=== PATIENT | male | born 1955 | race Caucasian/White ===

== ENCOUNTER 2017-06-12 10:34 | Observation (INO) | payer MEDICARE, OTHER ==
[~2017-06-12] VITALS: Ht 188 cm; Wt 111.0 kg
[~2017-06-12 10:34] MED LIST: ACETAMIN-HYDROcod 325-5 MG PO; ALBU8I INH; BACT800T5 PO; DILA100C PO; PHEN100 PO
[2017-06-12 11:22] VITALS: BP 147/73; PULSE 97; RESP 22; TEMP 98.2; O2SAT 94
[2017-06-12] MEDS ORDERED: TETANUS/DIPHTHERIA TOXOID ADULT 0.5 ML VIAL IM ONE (11:30)
[2017-06-12] MEDS ORDERED: LIDOCAINE HCL 1% 50 ML VIAL INFIL ONE (11:30)
--- NOTE | 2017-06-12 11:43 | PD ---
HPI Chief Complaint: Seizure Time Seen by Provider: 11:36 Travel History International Travel<30 days: No Contact w/Intl Traveler<30days: No Traveled to known affect area: No History of Present Illness HPI 61- year old with a PMHx of seizures, DVTs, and TB brought to the ED by [facility] complaining of a seizure 30 minutes prior to coming. The patient is here with his , who reports that the seizure was this morning and lasted about 5 minutes. Full tonic with LOC. The patient reports that he takes Dilantin for his seizures, but he missed a dose last night. The patient hit his head while seizing and has a laceration to his right ear. The patient is complaining of pain to his right ear due to the laceration which he rates as a 2/10, and a mild headache due to the seizure. The patient reports that his neurologist is Dr. Hernandez. The patient is a former smoker, and denies any alcohol or drug use. He reports that it has been over 5 years since his last tetanus shot. Denies any other injuries. No pain anywhere else. PFSH Past Medical History Arthritis: Yes (NECK) Cancer: Yes (COLON (CURRENTLY)) Cardiovascular Problems: Yes (LBBB) Diabetes: No Diminished Hearing: No Deep Vein Thrombosis: Yes (2008 TIMES 2) Endocrine: No Genitourinary: No Hepatitis: No Hiatal Hernia: No Immune Disorder: No Musculoskeletal: Yes (ARTHRITIS) Neurologic: Yes (SEIZURES) Psychiatric: No Reproductive: No Respiratory: Yes (COPD, HX TB) Seizures: Yes Thyroid Disease: No PNEUMOCCOCAL Vaccine (Year): 2 Past Surgical History AICD: No Ear Surgery: No Eye Surgery: Yes (METAL FRAGMENTS REMOVED FROM EYES) Joint Replacement: Yes (LEFT HIP) Pacemaker: No Other Surgery: Yes (TRAUMA WITH SURGICAL REPAIR OF ANTERIOR OF NECK/THROAT) Social History Alcohol Use: Yes (OCC. ) Tobacco Use: Yes (LESS THAN 1 PPD) Substance Use: No Allergies-Medications (Allergen,Severity, Reaction): Coded Allergies: morphine (Unverified Adverse Reaction, Mild, foot burning sensation, ) 05/20/16 DENIES ALLERGY Reported Meds & Prescriptions Reported Meds & Active Scripts Active [ACETAMIN-HYDROcod 325-5 MG] 1 TAB Tab 2 Tab PO Q6H PRN Reported Xarelto (Rivaroxaban) 20 Mg Tab 20 Mg PO DAILY Dilantin (Phenytoin Extended) 100 Mg Cap 200 Mg PO DAILY@1600 Dilantin (Phenytoin Extended) 100 Mg Cap 300 Mg PO DAILY Review of Systems General / Constitutional: No: Fever, Chills, Weight Gain, Weight Loss, Other Eyes: No: Diploplia, Blurred Vision, Photophobia, Drainage, Redness, Foreign Body Sensation, Pain, Tearing, Blind Spots, Visual changes, Blindness, Other HENT: Positive: Headaches, No: Vertigo, Lightheadedness, Sore Throat, Rhinitis , Rhinorrhea, Congestion, Nosebleed, Neck Stiffness, Neck Pain, Masses, Gingival Bleeding, Dental Difficulties, Ear Discharge, Earache, Other Cardiovascular: No: Chest Pain or Discomfort, Palpitations, Irregular Rhythm, Tachycardia, Diaphoresis, Syncope, Dyspnea on exertion, Varicosities, Edema, Cyanosis, Varicosities, Phlebitis, Claudication, Other Respiratory: No: Cough, Shortness of Breath, Wheezing, Sneezing, Orthopnea, Hemoptysis, Stridor, Night Sweats, Pleuritic Pain, Other Gastrointestinal: No: Nausea, Vomiting, Diarrhea, Abdominal Pain, Hematemesis, Hematochezia, Constipation, Changes in Bowel Habits, Indigestion, Dysphagia, Loss of Appetite, Other Genitourinary: No: Urgency, Frequency, Dysuria, Nocturia, Hematuria, Decreased Urinary Output, Oliguria, Hesitancy, Dribbling, Incontinence, Pelvic Pain, Flank Pain, Dyspareunia, Discharge, Dysmenorrhea, Menorrhagia, Metorrhagia, Vaginal Bleeding, Other Musculoskeletal: No: Myalgias, Arthralgias, Limited ROM, Weakness, Cramping, Edema, Pain, Atrophy, Other Skin: Positive Other (Laceration to right ear ), No Rash, No Itching, No Dryness, No Lumps, No Hives, No Change in Pigmentation, No Change in nails, No Alopecia, No Lesions, No Breast Lumps, No Breast Tenderness, No Breast Swelling Neurologic: Positive: Headache, Seizures, No: Weakness, Dizziness, Syncope, Focal Abnormalities, Coordination Problem, Tremor, Ataxia, Change in Mentation, Slurred Speech, Paresthesia, Incontinence, Sensory Disturbance, Other Psychiatric: No: Anxiety, Depression, Suicidal Ideations, Disorder of Thought, Mood Disorder, Substance Abuse, Homicidal Ideation, Other Endocrine: No: Heat Intolerance, Cold Intolerance, Polyuria, Polydipsia, Other Hematologic/Lymphatic: No: Easy Bruising, Lymph Node Enlargement, Other Physical Exam Narrative GENERAL: SKIN: Warm and dry. HEAD: Atraumatic. Normocephalic. EYES: Pupils equal and round. No scleral icterus. No injection or drainage. ENT: No nasal bleeding or discharge. Mucous membranes pink and moist. Tongue is midline, no uvula deviation. NECK: Trachea midline. No JVD. CARDIOVASCULAR: Regular rate and rhythm. No murmurs, S3, S4. RESPIRATORY: No accessory muscle use. Clear to auscultation. Breath sounds equal bilaterally. No wheezing, rales, or rhonchi. GASTROINTESTINAL: Abdomen soft, non-tender, nondistended. Hepatic and splenic margins not palpable. MUSCULOSKELETAL: Laceration behind right ear. Extremities without clubbing, cyanosis, or edema. No obvious deformities. Full ROM of the upper and lower extremities bilaterally. 2+ pulses bilaterally. NEUROLOGICAL: Awake and alert. No obvious cranial nerve deficits. Motor grossly within normal limits. Five out of 5 muscle strength in the arms and legs. Normal speech. PSYCHIATRIC: Appropriate mood and affect; insight and judgment normal. Data Data Last Documented VS Vital Signs Date Time Temp Pulse Resp B/P Pulse Ox O2 Delivery O2 Flow Rate FiO2 06/12/17 15:45 88 16 103/53 94 06/12/17 12:13 98.2 Room Air Orders Electrocardiogram (06/12/17 11:27) Complete Blood Count With Diff (06/12/17 11:27) Basic Metabolic Panel (Bmp) (06/12/17 11:27) Magnesium (Mg) (06/12/17 11:27) Phenytoin (Dilantin) (06/12/17 11:27) Iv Access Insert/Monitor (06/12/17 11:27) Ecg Monitoring (06/12/17 11:27) Oximetry (06/12/17 11:27) Ct Brain W/O Iv Contrast(Rout) (06/12/17 11:27) Wound Care (06/12/17 11:27) Tetanus/Diphtheria Tox Adult (Tetanus/Di (06/12/17 11:30) Lidocaine 1% Inj (50 Ml) (Xylocaine 1% I (06/12/17 11:30) Alcohol (Ethanol) (06/12/17 11:27) Coag Profile (06/12/17 11:27) Vascular Access Team Consult/P PRN (06/12/17 11:49) Vascular Poc Ultrasound (06/12/17 ) Ct Facial Bones W/O Iv Cont (06/12/17 ) Acetamin-Hydrocod 325-5 Mg ([place] 5-325 (06/12/17 14:30) Lorazepam Inj (Ativan Inj) (06/12/17 14:29) Phenytoin Inj (Dilantin Inj) (06/12/17 14:45) Lorazepam Inj (Ativan Inj) (06/12/17 14:42) Place In Observation (06/12/17 ) Vital Signs (Adult) RICH.Q4H (06/12/17 16:01) Activity Oob With Assistance (06/12/17 16:01) Cmm Technician / Telemetry RICH.Q8H (06/12/17 16:01) Diet Heart Healthy (06/12/17 Dinner) Sodium Chlor 0.45% 1000 Ml Inj (1/2 Ns 1 (06/12/17 16:01) ^ Fall Precautions (06/12/17 16:03) ^ Seizure Precautions (06/12/17 16:03) Admit Order (Ed Use Only) (06/12/17 16:01) Labs Laboratory Tests Test 06/12/17 11:50 White Blood Count 9.2 TH/MM3 Red Blood Count 4.30 MIL/MM3 Hemoglobin 14.7 GM/DL Hematocrit 43.5 % Mean Corpuscular Volume 101.2 FL Mean Corpuscular Hemoglobin 34.1 PG Mean Corpuscular Hemoglobin 33.7 % Concent Red Cell Distribution Width 13.2 % Platelet Count 225 TH/MM3 Mean Platelet Volume 7.8 FL Neutrophils (%) (Auto) 90.2 % Lymphocytes (%) (Auto) 5.5 % Monocytes (%) (Auto) 4.0 % Eosinophils (%) (Auto) 0.1 % Basophils (%) (Auto) 0.2 % Neutrophils # (Auto) 8.3 TH/MM3 Lymphocytes # (Auto) 0.5 TH/MM3 Monocytes # (Auto) 0.4 TH/MM3 Eosinophils # (Auto) 0.0 TH/MM3 Basophils # (Auto) 0.0 TH/MM3 CBC Comment DIFF FINAL Differential Comment Prothrombin Time 11.4 SEC Prothromb Time International 1.0 RATIO Ratio Activated Partial 24.1 SEC Thromboplast Time Sodium Level 138 MEQ/L Potassium Level 4.7 MEQ/L Chloride Level 109 MEQ/L Carbon Dioxide Level 22.8 MEQ/L Anion Gap 6 MEQ/L Blood Urea Nitrogen 13 MG/DL Creatinine 0.91 MG/DL Estimat Glomerular Filtration 85 ML/MIN Rate Random Glucose 129 MG/DL Calcium Level 8.4 MG/DL Magnesium Level 2.2 MG/DL Phenytoin (Dilantin) Level 11.0 MCG/ML Ethyl Alcohol Level LESS THAN 3 MG/DL MDM Medical Decision Making Medical Screen Exam Complete: Yes Emergency Medical Condition: Yes Medical Record Reviewed: Yes Interpretation(s) CBC & BMP Diagram 06/12/17 11:50 coags WNL tox shows phenytoin of WNL Last Impressions Head CT 06/12/17 1127 Signed Impressions: Service Date/Time: May 13:55 - CONCLUSION: No acute disease. Miguel An MD Maxillofacial CT 06/12/17 0000 Signed Impressions: Service Date/Time: May 13:57 - CONCLUSION: Negative trauma facial bone CT Clarence Blandon MD Differential Diagnosis Seizures vs laceration vs head injury vs breakthrough seizure Narrative Course 61-year-old male that presents to the ED for evaluation of seizure. Patient has a history of seizures and had a breakthrough seizure today. Patient had blood work done last week and she was seen by his neurologist last week and was told that his levels were fine. He has not had a seizure in quite sometime. Labs and imaging were ordered. CT of the head was ordered as patient does take Xarelto. Patient did suffer a laceration which will require repair. After splint proceeded to the patient and she agreed to it laceration was repaired as stated in procedure note. Labs and imaging showed no sign of acute injury. Case discussed with the patient's neurologist over the phone Dr Bailey who recommended that we up the phenytoin and can be discharged, however at the same time I was talking with him I get informed he had another seizure. This was discussed with him who agrees possible obs to monitor him would be recommended. This was discussed with family and patient who agree with plan. Case discussed with [facility] who agrees to admission. Procedures Procedure Narrative LACERATION LOCATION: right posterior ear LENGTH: 3 cm NUMBER OF STITCHES/TERENCE: 8 sutures REPAIR: The area of the laceration was prepped with Betadine and sterilely draped. The laceration was infiltrated with 1% Xylocaine. The wound was copiously irrigated and explored without evidence of foreign body, tendon injury or neurovascular injury. The wound was closed using 5-0 Prolene. This was a 1 layer repair. A sterile dressing was applied. The patient was advised to keep the dressing clean and dry. Patient tolerated the procedure well. Diagnosis Primary Impression: Breakthrough seizure Additional Impression: Seizure disorder Admitting Information Admitting Physician Requests: Observation Tee Soriano Jun 12, 2017 11:43
[2017-06-12] MEDS ORDERED: DILA100C PO ×2 (11:46)
[2017-06-12] MEDS ORDERED: XARE20TA PO (11:46)
[2017-06-12 11:59] LABS: AUTOMATED NEUTROPHIL # 8.3 TH/MM3 (1.8-7.7); BASOPHIL % 0.2 % (0.0-2.0); EOSINOPHIL % 0.1 % (0.0-4.0); HEMATOCRIT 43.5 % (39.0-51.0); HEMO FLAGS DIFF FINAL; LYMPH % 5.5 % (9.0-44.0); LYMPHOCYTE # 0.5 TH/MM3 (1.0-4.8); MEAN CELL VOLUME 101.2 FL (80.0-100.0); MEAN CORPUSCULAR HEMOGLOBIN 34.1 PG (27.0-34.0); MEAN CORPUSCULAR HGB CONC 33.7 % (32.0-36.0); NEUT % 90.2 % (16.0-70.0); PLATELET COUNT 225 TH/MM3 (150-450); RED CELL DISTRIBUTION WIDTH 13.2 % (11.6-17.2); WHITE BLOOD COUNT 9.2 TH/MM3 (4.0-11.0)
[2017-06-12 12:13] VITALS: BP 147/73; PULSE 97; RESP 22; TEMP 98.2; O2SAT 94
[2017-06-12 12:16] LABS: ANION GAP 6 MEQ/L (5-15); BICARBONATE 22.8 MEQ/L (21.0-32.0); BLOOD UREA NITROGEN 13 MG/DL (7-18); CHLORIDE 109 MEQ/L (98-107); GLOMERULAR FILTRATION RATE 85 ML/MIN (>89); MAGNESIUM 2.2 MG/DL (1.5-2.5); POTASSIUM 4.7 MEQ/L (3.5-5.1); SODIUM (NA) 138 MEQ/L (136-145)
[2017-06-12 12:18] LABS: APTT (PATIENT) 24.1 SEC (24.3-30.1); PROTHROMBIN TIME - PATIENT 11.4 SEC (9.8-11.6)
[2017-06-12 12:21] LABS: ALCOHOL LESS THAN 3 MG/DL (0-5)
[2017-06-12 13:54] VITALS: BP 137/70; PULSE 79; RESP 18; O2SAT 98
--- NOTE | 2017-06-12 14:08 | RADRPT ---
EXAM DATE/TIME: 06/12/2017 13:55 [facility] COMPARISON: CT BRAIN W/O CONTRAST, July 23, 2014, 19:17. INDICATIONS : Seizure this morning, laceration behind right ear RADIATION DOSE: 45.79 CTDIvol (mGy) MEDICAL HISTORY : Deep venous thrombosis. Cardiovascular disease Carcinoma, colon. SURGICAL HISTORY : None. ENCOUNTER: Initial ACUITY: 1 day PAIN SCALE: 5/10 LOCATION: Right posterior TECHNIQUE: Multiple contiguous axial images were obtained of the head. Using automated exposure control and adj ustment of the mA and/or kV according to patient size, radiation dose was kept as low as reasonably a chievable to obtain optimal diagnostic quality images. DICOM format image data is available electro nically for review and comparison. FINDINGS: CEREBRUM: The ventricles are normal for age. No evidence of midline shift, mass lesion, hemorrhage or acute in farction. No extra-axial fluid collections are seen. POSTERIOR FOSSA: The cerebellum and brainstem are intact. The 4th ventricle is midline. The cerebellopontine angle i s unremarkable. EXTRACRANIAL: The visualized portion of the orbits is intact. SKULL: The calvaria is intact. No evidence of skull fracture. CONCLUSION: No acute disease. Miguel An MD on June 12, 2017 at 14:05 Board Certified Radiologist. This report was verified electronically.
--- NOTE | 2017-06-12 14:16 | RADRPT ---
EXAM DATE/TIME: 06/12/2017 13:57 [facility] COMPARISON: No previous studies available for comparison. INDICATIONS : Seizure this morning, hit head RADIATION DOSE: 36.74 CTDIvol (mGy) MEDICAL HISTORY : Seizures. Carcinoma, colon. Deep venous thrombosis. SURGICAL HISTORY : None. ENCOUNTER: Initial ACUITY: 1 day PAIN SCORE: 0/10 LOCATION: facial TECHNIQUE: Volumetric scanning of the facial bones was performed. Using automated exposure control and adjustme nt of the mA and/or kV according to patient size, radiation dose was kept as low as reasonably achiev able to obtain optimal diagnostic quality images. DICOM format image data is available electronicFamilyLeaf y for review and comparison. FINDINGS: ORBITS: The orbital and infraorbital osseous structures are intact. The retroconal structures have a normal configuration. No radiopaque foreign bodies are seen. NASAL BONE: The nasal bone and maxillary spine are intact ZYGOMATIC ARCHES: Symmetric without evidence of fracture. SINUSES: The maxillary, ethmoid and frontal sinuses are intact. No air-fluid levels seen. NASAL CAVITY: The nasal septum is intact and midline. The lacrimal ducts are intact. SOFT TISSUES: No radiopaque foreign bodies seen. No soft-tissue swelling is seen. INTRACRANIAL: No intracranial air seen. CRIBIFORM PLATE: Grossly intact. CONCLUSION: Negative trauma facial bone CT Clarence Blandon MD on June 12, 2017 at 14:12 Board Certified Radiologist. This report was verified electronically.
[2017-06-12] MEDS ORDERED: LORazepam 2 MG/ML VIAL ONE ×2 (14:29→14:42)
[2017-06-12] MEDS ORDERED: ACETAMINOPHEN/HYDROcodone 325 MG/5 MG TAB PO ONE (14:30)
[2017-06-12] MEDS ORDERED: PHENYTOIN INJ 250 MG/5 ML VIAL IV ONE (14:45)
[2017-06-12 15:45] VITALS: BP 103/53; PULSE 88; RESP 16; O2SAT 94
[2017-06-12] MEDS ORDERED: LORazepam 2 MG/ML VIAL IM ONE (17:00)
[2017-06-12 17:38] VITALS: BP 113/62; PULSE 88; RESP 18; TEMP 98.3; O2SAT 98
[2017-06-12] MEDS: PHENYTOIN SODIUM 100 MG CAP PO SCH (18:14)
[2017-06-12] MEDS: SODIUM CHLOR 0.45% 1000 ML INJ 1,000 ML IV SCH (18:14)
[2017-06-12] MEDS ORDERED: LORazepam 2 MG/ML VIAL IV PUSH PRN (18:15)
--- NOTE | 2017-06-12 18:15 | HHI.HP ---
[facility] Luiz Enrique, DO Admission Diagnosis seizure with breathrough x 2 Diagnoses: Chief Complaint: seizure Travel History International Travel<30 Days: No Contact w/Intl Traveler <30 Da: No Traveled to Known Affected Are: No History of Present Illness 61-year-old white male being admitted for seizures. Patient was in his usual state of health until earlier today when his noted that he stood up from a sitting position, screamed, and then collapsed to the floor and began seizing for over a minute, his entire body was involved. He had fallen on the floor, lacerating his right ear. Seizing stopped spontaneously and the patient appeared to be bradypneic/apneic with no cyanosis noted. Patient spontaneously began taking deep breaths again and came to with a little confusion, he had bitten his tongue on both sides, and was subsequently brought to the ED via ambulance. says he has not had a seizure in 2 years. Patient does admit that he missed his nighttime 200 mg dose of Dilantin yesterday evening and said he tried to compensate for this morning. also says that at his neurologist 's office his Dilantin level was around 15 which was apparently good for him, in the ER today it is around 11. Patient reports having some mild abdominal pain and headache. Laceration was repaired in the ER, head was scanned since patient was on eliquis (prior hx of blood clots),no acute bleed or mass base lesion was noted. Patient had received Ativan but then subsequently underwent a second seizure requiring phenytoin loading. Review of Systems Except as stated in HPI: all other systems reviewed are Neg Past Family Social History Past Medical History seizures, blood clots, colon cancer Past Surgical History colonic resection for colon cancer Reported Medications Reported Meds & Active Scripts Active [ACETAMIN-HYDROcod 325-5 MG] 1 TAB Tab 2 Tab PO Q6H PRN Reported Xarelto (Rivaroxaban) 20 Mg Tab 20 Mg PO DAILY Dilantin (Phenytoin Extended) 100 Mg Cap 200 Mg PO DAILY@1600 Dilantin (Phenytoin Extended) 100 Mg Cap 300 Mg PO DAILY Allergies: Coded Allergies: morphine (Unverified Adverse Reaction, Mild, foot burning sensation, ) 05/20/16 DENIES ALLERGY Family History heart attack in brother Social History lives w/ , ex smoker by about 4 years, denies illicit drug and alcohol use Physical Exam Vital Signs Vital Signs Date Time Temp Pulse Resp B/P Pulse Ox O2 Delivery O2 Flow Rate FiO2 06/12/17 17:38 98.3 88 18 113/62 98 06/12/17 16:20 16 06/12/17 15:45 88 16 103/53 94 06/12/17 13:54 79 18 137/70 98 06/12/17 12:13 98.2 97 22 147/73 94 Room Air 06/12/17 11:29 Room Air 06/12/17 11:22 98.2 97 22 147/73 94 Physical Exam VS: Reviewed GENERAL: Lying in bed comfortably, no acute distress SKIN: Warm and dry. EYES: Pupils equal and round. No scleral icterus. No injection or drainage. ENT: No nasal bleeding or discharge. Mucous membranes pink and moist. Small laceration on posterior right ear that has been sutured, no active bleeding. Bilateral tongue abrasions on lateral aspects of tongue, no active bleeding. CARDIOVASCULAR: Regular rate and rhythm. no murmurs RESPIRATORY: No accessory muscle use. Clear to auscultation. Breath sounds equal bilaterally. GASTROINTESTINAL: Abdomen soft, non-tender, nondistended. MUSCULOSKELETAL: Extremities without clubbing, cyanosis, or edema. No obvious deformities. grossly intact ROM with 5/5 strength in upper and lower extremities proximally NEUROLOGICAL: Awake and alert. No obvious cranial nerve deficits. No facial droop nor slurred speech noted. Diminshed DTRs patella BL, neg babinski PSYCHIATRIC: Appropriate mood and affect; insight and judgment normal. Laboratory Laboratory Tests Test 06/12/17 11:50 White Blood Count 9.2 Red Blood Count 4.30 Hemoglobin 14.7 Hematocrit 43.5 Mean Corpuscular Volume 101.2 Mean Corpuscular Hemoglobin 34.1 Mean Corpuscular Hemoglobin 33.7 Concent Red Cell Distribution Width 13.2 Platelet Count 225 Mean Platelet Volume 7.8 Neutrophils (%) (Auto) 90.2 Lymphocytes (%) (Auto) 5.5 Monocytes (%) (Auto) 4.0 Eosinophils (%) (Auto) 0.1 Basophils (%) (Auto) 0.2 Neutrophils # (Auto) 8.3 Lymphocytes # (Auto) 0.5 Monocytes # (Auto) 0.4 Eosinophils # (Auto) 0.0 Basophils # (Auto) 0.0 CBC Comment DIFF FINAL Differential Comment Prothrombin Time 11.4 Prothromb Time International 1.0 Ratio Activated Partial 24.1 Thromboplast Time Sodium Level 138 Potassium Level 4.7 Chloride Level 109 Carbon Dioxide Level 22.8 Anion Gap 6 Blood Urea Nitrogen 13 Creatinine 0.91 Estimat Glomerular Filtration 85 Rate Random Glucose 129 Calcium Level 8.4 Magnesium Level 2.2 Phenytoin (Dilantin) Level 11.0 Ethyl Alcohol Level LESS THAN 3 Result Diagram: 06/12/17 1150 06/12/17 1150 Imaging Last Impressions Head CT 06/12/17 1127 Signed Impressions: Service Date/Time: May 13:55 - CONCLUSION: No acute disease. Miguel An MD Maxillofacial CT 06/12/17 0000 Signed Impressions: Service Date/Time: May 13:57 - CONCLUSION: Negative trauma facial bone CT Clarence Blandon MD Assessment and Plan Problem List: (1) DVT Status: Chronic (2) Colon cancer ICD Code: C18.9 - Malignant neoplasm of colon, unspecified Status: Resolved (3) Breakthrough seizure ICD Code: G40.919 - Epilepsy, unspecified, intractable, without status epilepticus Status: Acute Assessment and Plan 61-year-old white male admitted for breakthrough seizure versus seizure secondary to medication noncompliance 1) seizure disorder - stabilized emergency room after Ativan and phenytoin loading, will resume dosing of home medications and monitor with seizure and fall precautions along with telemetry. Lab workup was unremarkable for any acute precipitants CT head negative for any acute changes. ativan prn seizure. Anticipate discharge home if uneventful, otherwise may need neurology consultation prior to discharge. 2) dvt (in the past) - will place on lovenox for now, to resume NOAC upon discharge Physician Certification 2 Midnight Certification Type: Continued Stay Order for Inpatient Services The services are ordered in accordance with Medicare regulations or non- Medicare payer requirements, as applicable. In the case of services not specified as inpatient-only, they are appropriately provided as inpatient services in accordance with the 2-midnight benchmark. Estimated LOS (days): 1 1 days is the estimated time the patient will need to remain in the hospital, assuming treatment plan goals are met and no additional complications. Post-Hospital Plan: Home Earle Jain MD Jun 12, 2017 18:15
[2017-06-12 20:40] VITALS: BP 126/56; PULSE 86; RESP 17; TEMP 99.5; O2SAT 99
[2017-06-13] VITALS: BP 114/64; PULSE 80; RESP 20; TEMP 99.7; O2SAT 97
[2017-06-13 05:01] VITALS: BP 114/78; PULSE 71; RESP 17; TEMP 98.5; O2SAT 96
[2017-06-13] MEDS: SODIUM CHLOR 0.45% 1000 ML INJ 1,000 ML IV SCH (05:21)
[2017-06-13 07:00] VITALS: PULSE 67
[2017-06-13 07:57] VITALS: BP 140/60; PULSE 68; RESP 20; TEMP 98.8; O2SAT 95
[2017-06-13] MEDS ORDERED: PHENYTOIN SODIUM 100 MG CAP PO SCH (09:00)
[2017-06-13 12:10] VITALS: BP 140/60; PULSE 68; RESP 20; TEMP 98.3; O2SAT 95
--- NOTE | 2017-06-13 14:01 | EKG ---
Date Performed: 06/12/2017 Time Performed: 12:08:39 PTAGE: 61 years EKG: Sinus rhythm LEFT BUNDLE BRANCH BLOCK Compared to previous tracing left bundle branch block is new ABNORMAL ECG PREVIOUS TRACING : 08/02/2014 13.24 DOCTOR: Ramiro Bragg Interpretating Date/Time 06/13/2017 14:00:00
[2017-06-13] MEDS: PHENYTOIN SODIUM 100 MG CAP PO SCH (16:27)
[2017-06-13 16:37] VITALS: BP 133/83; PULSE 80; RESP 18; TEMP 97.8; O2SAT 95
--- NOTE | 2017-06-13 16:47 | HHI.DCPOC ---
Discharge Care Plan Additional Problems Seizures Goals to Promote Your Health * To prevent worsening of your condition and complications * To maintain your health at the optimal level Directions to Meet Your Goals Take your medications as prescribed Follow your dietary instruction Follow activity as directed Do not drive or operate any heavy machinery until seen by your neurologist. Keep your appointments as scheduled Take your immunizations and boosters as scheduled If your symptoms worsen call your PCP, if no PCP go to Urgent Care Center or Emergency Room Smoking is Dangerous to Your Health. Avoid second hand smoke Call the 24-hour hour crisis hotline for domestic abuse at Earle Jain MD Jun 13, 2017 16:47
--- NOTE | 2017-06-13 16:50 | HHI.DS ---
Discharge Summary Admission Date Jun 12, 2017 at 16:03 Discharge Date: Jun 13, 2017 Admitting Diagnosis seizure with breathrough x 2 (1) DVT Diagnosis: Secondary (2) Colon cancer ICD Code: C18.9 (3) Breakthrough seizure ICD Code: G40.919 Diagnosis: Principal Procedures None Brief History - From Admission 61-year-old white male being admitted for seizures. Patient was in his usual state of health until earlier today when his noted that he stood up from a sitting position, screamed, and then collapsed to the floor and began seizing for over a minute, his entire body was involved. He had fallen on the floor, lacerating his right ear. Seizing stopped spontaneously and the patient appeared to be bradypneic/apneic with no cyanosis noted. Patient spontaneously began taking deep breaths again and came to with a little confusion, he had bitten his tongue on both sides, and was subsequently brought to the ED via ambulance. says he has not had a seizure in 2 years. Patient does admit that he missed his nighttime 200 mg dose of Dilantin yesterday evening and said he tried to compensate for this morning. also says that at his neurologist 's office his Dilantin level was around 15 which was apparently good for him, in the ER today it is around 11. Patient reports having some mild abdominal pain and headache. Laceration was repaired in the ER, head was scanned since patient was on eliquis (prior hx of blood clots),no acute bleed or mass base lesion was noted. Patient had received Ativan but then subsequently underwent a second seizure requiring phenytoin loading. CBC/BMP: 06/12/17 1150 06/12/17 1150 Significant Findings Laboratory Tests Test 06/12/17 11:50 Red Blood Count 4.30 MIL/MM3 (4.50-5.90) Mean Corpuscular Volume 101.2 FL (80.0-100.0) Mean Corpuscular Hemoglobin 34.1 PG (27.0-34.0) Neutrophils (%) (Auto) 90.2 % (16.0-70.0) Lymphocytes (%) (Auto) 5.5 % (9.0-44.0) Neutrophils # (Auto) 8.3 TH/MM3 (1.8-7.7) Lymphocytes # (Auto) 0.5 TH/MM3 (1.0-4.8) Activated Partial 24.1 SEC Thromboplast Time (24.3-30.1) Chloride Level 109 MEQ/L (98-107) Estimat Glomerular Filtration 85 ML/MIN (>89) Rate Random Glucose 129 MG/DL (74-106) Calcium Level 8.4 MG/DL (8.5-10.1) PE at Discharge GENERAL: Lying in bed comfortably, no acute distress CARDIOVASCULAR: Regular rate and rhythm without murmurs, gallops, or rubs. RESPIRATORY: Breath sounds equal and clear bilaterally. Unlabored breathing GASTROINTESTINAL: Abdomen soft, non-tender, nondistended. Neurological: No obvious cranial deficits, no facial droop, no slurred speech Hospital Course Patient was admitted after being loaded with phenytoin, was transitioned to his home dose of phenytoin and remained seizure-free through the hospital stay after the ED course. Patient was tolerating meals fine and denies having any recurrence of seizures, no recurrent seizures were witnessed by floor nursing staff. Patient says that he cannot drive or operate any heavy machinery until cleared by his neurologist during an outpatient visit. Patient has met maximum benefit from hospitalization and is clinically stable for discharge. Pt Condition on Discharge: Stable Discharge Disposition: Discharge Home Discharge Time: <= 30 minutes Discharge Instructions DIET: Follow Instructions for: As Tolerated, No Restrictions Activities you can perform: Regular-No Restrictions Activities to Avoid: Driving Other Activity Instructions: Do not operate any heavy machinery Follow up Referrals: Neurology - 1 Week PCP Follow-up - 1 Week Continued Medications: Phenytoin Extended (Dilantin) 100 Mg Cap 300 MG PO DAILY Control Seizures Ref 0 CAP Phenytoin Extended (Dilantin) 100 Mg Cap 200 MG PO DAILY@1600 Control Seizures Ref 0 CAP Rivaroxaban (Xarelto) 20 Mg Tab 20 MG PO DAILY Blood Clot Prevention Ref 0 TAB ([ACETAMIN-HYDROcod 325-5 MG]) 1 TAB TAB 2 TAB PO Q6H PRN PAIN SCALE 6 TO 10 #30 Ref 0 TAB Earle Jain MD Jun 13, 2017 16:50
== END 2017-06-13 17:00 | disposition home or self-care (01) ==
LOC: NEPE 10:34 → NEDA 16:03 → NEPFCDU 17:25
PROVIDERS: ADMIT Hospitalist; ATTEND Hospitalist
DX: G40.919 Epilepsy, unspecified, intractable, without status epilepticus (principal); S01.311A Laceration without foreign body of right ear, initial encounter; J44.9 Chronic obstructive pulmonary disease, unspecified; R94.31 Abnormal electrocardiogram [ECG] [EKG]; F17.200 Nicotine dependence, unspecified, uncomplicated; Z86.11 Personal history of tuberculosis; Z86.718 Personal history of other venous thrombosis and embolism; Z91.14 Patient's other noncompliance with medication regimen; Z85.038 Personal history of other malignant neoplasm of large intestine; M19.90 Unspecified osteoarthritis, unspecified site; Z79.899 Other long term (current) drug therapy; Z23 Encounter for immunization
CPT/HCPCS: 12002; 70450; 70486; 76937; 80048; 80185; 80307; 83735; 85025; 85610; 85730; 90471; 90714; 93005; 96361; 96374; 96375; 99285; G0378; J1165; J2060

== ENCOUNTER 2017-11-28 10:12 | Emergency (ER) | payer OTHER ==
[~2017-11-28] VITALS: Ht 188 cm; Wt 110.0 kg
[~2017-11-28 10:12] MED LIST changes: -ALBU8I INH; -BACT800T5 PO; -PHEN100 PO; +XARE20TA PO
[2017-11-28] MEDS ORDERED: SODIUM CHLORIDE 0.9% FLUSH 10 ML FLUSH IVF PRN (10:30)
[2017-11-28 10:32] VITALS: BP 128/60; PULSE 94; RESP 18; TEMP 98.4; O2SAT 96
[2017-11-28] MEDS ORDERED: ROSU5 PO (10:35)
--- NOTE | 2017-11-28 10:37 | PD ---
HPI Chief Complaint: Seizure Time Seen by Provider: 10:25 Travel History International Travel<30 days: No Contact w/Intl Traveler<30days: No Traveled to known affect area: No History of Present Illness HPI Per EMS patient apparently had a tonic-clonic type seizure about 45 minutes prior to arrival. The patient has a history of seizures on Dilantin. Upon arrival patient was able to give most of the history but he was still somewhat postictal as he had trouble recalling his primary care and neurologist names at the time. However he eventually patient recalled that Dr. MANN is his neurologist..... Patient also has a history of DVT for which she is on Xarelto. Apparently the seizure was unwitnessed and so it is unknown if the patient had any blunt head trauma. Patient states that he is compliant with his medications and takes them "religiously" PFSH Past Medical History Arthritis: Yes (NECK) Blood Disorders: No Heart Rhythm Problems: Yes (LEFT BBB) Cancer: No Cardiovascular Problems: Yes COPD: Yes Diabetes: No Diminished Hearing: No Deep Vein Thrombosis: Yes (2007 TIMES 2) Endocrine: No Gastrointestinal Disorders: Yes (DIARRHEA ) Genitourinary: No Hepatitis: No Hiatal Hernia: No Immune Disorder: No Musculoskeletal: Yes (ARTHRITIS) Neurologic: Yes (EPILEPSY) Psychiatric: No Reproductive: No Respiratory: Yes Seizures: Yes Thyroid Disease: No PNEUMOCCOCAL Vaccine (Year): 2 ?: Not Past Surgical History AICD: No Ear Surgery: No Eye Surgery: Yes (METAL FRAGMENTS REMOVED FROM EYES) Joint Replacement: Yes (LEFT HIP) Pacemaker: No Other Surgery: Yes (TRAUMA WITH SURGICAL REPAIR OF ANTERIOR OF NECK/THROAT) Social History Alcohol Use: Yes (OCC. ) Tobacco Use: No (quit 4 years ago) Substance Use: No Allergies-Medications (Allergen,Severity, Reaction): Coded Allergies: morphine (Unverified Adverse Reaction, Mild, foot burning sensation, ) 05/20/16 DENIES ALLERGY Reported Meds & Prescriptions Reported Meds & Active Scripts Active [ACETAMIN-HYDROcod 325-5 MG] 1 TAB Tab 2 Tab PO Q6H PRN Reported Crestor (Rosuvastatin Calcium) 5 Mg Tab 5 Mg PO DAILY Xarelto (Rivaroxaban) 20 Mg Tab 20 Mg PO DAILY Dilantin (Phenytoin Extended) 100 Mg Cap 200 Mg PO DAILY@1600 Dilantin (Phenytoin Extended) 100 Mg Cap 300 Mg PO DAILY Review of Systems General / Constitutional: No: Fever Eyes: No: Visual changes HENT: No: Headaches Cardiovascular: No: Chest Pain or Discomfort Respiratory: No: Shortness of Breath Gastrointestinal: No: Abdominal Pain Genitourinary: No: Dysuria Musculoskeletal: No: Pain Skin: No Rash Neurologic: Positive: Seizures Psychiatric: No: Depression Endocrine: No: Polydipsia Hematologic/Lymphatic: No: Easy Bruising Physical Exam Narrative GENERAL: SKIN: Warm and dry. HEAD: Atraumatic. Normocephalic. EYES: Pupils equal and round. No scleral icterus. No injection or drainage. ENT: No nasal bleeding or discharge. Mucous membranes pink and moist. Of note no tongue or lip biting carlton noted NECK: Trachea midline. No JVD. CARDIOVASCULAR: Regular rate and rhythm. RESPIRATORY: No accessory muscle use. Clear to auscultation. Breath sounds equal bilaterally. GASTROINTESTINAL: Abdomen soft, non-tender, nondistended. Of note no fecal or urinary incontinence MUSCULOSKELETAL: Extremities without clubbing, cyanosis, or edema. No obvious deformities. NEUROLOGICAL: Awake and alert. No obvious cranial nerve deficits. Motor grossly within normal limits. Five out of 5 muscle strength in the arms and legs. Normal speech. PSYCHIATRIC: Appropriate mood and affect; insight and judgment normal. Data Data Last Documented VS Vital Signs Date Time Temp Pulse Resp B/P (MAP) Pulse Ox O2 Delivery O2 Flow Rate FiO2 11/28/17 11:50 98.7 103 17 136/75 (95) 95 Nasal Cannula 3.00 Orders Orders Complete Blood Count With Diff (11/28/17 10:25) Phenytoin (Dilantin) (11/28/17 10:25) Ct Brain W/O Iv Contrast(Rout) (11/28/17 ) Blood Glucose (11/28/17 10:25) Ecg Monitoring (11/28/17 10:25) Iv Access Insert/Monitor (11/28/17 10:25) Oximetry (11/28/17 10:25) Comprehensive Metabolic Panel (11/28/17 10:25) Sodium Chloride 0.9% Flush (Ns Flush) (11/28/17 10:30) Lorazepam Inj (Ativan Inj) (11/28/17 10:30) Phenytoin Inj (Dilantin Inj) (11/28/17 12:15) Labs Laboratory Tests Test 11/28/17 10:41 White Blood Count 7.9 TH/MM3 Red Blood Count 4.26 MIL/MM3 Hemoglobin 14.5 GM/DL Hematocrit 41.5 % Mean Corpuscular Volume 97.3 FL Mean Corpuscular Hemoglobin 34.0 PG Mean Corpuscular Hemoglobin Concent 34.9 % Red Cell Distribution Width 12.7 % Platelet Count 265 TH/MM3 Mean Platelet Volume 7.9 FL Neutrophils (%) (Auto) 79.8 % Lymphocytes (%) (Auto) 13.2 % Monocytes (%) (Auto) 6.2 % Eosinophils (%) (Auto) 0.4 % Basophils (%) (Auto) 0.4 % Neutrophils # (Auto) 6.3 TH/MM3 Lymphocytes # (Auto) 1.0 TH/MM3 Monocytes # (Auto) 0.5 TH/MM3 Eosinophils # (Auto) 0.0 TH/MM3 Basophils # (Auto) 0.0 TH/MM3 CBC Comment DIFF FINAL Differential Comment Blood Urea Nitrogen 11 MG/DL Creatinine 1.10 MG/DL Random Glucose 173 MG/DL Total Protein 7.3 GM/DL Albumin 3.6 GM/DL Calcium Level 9.2 MG/DL Alkaline Phosphatase 145 U/L Aspartate Amino Transf (AST/SGOT) 20 U/L Alanine Aminotransferase (ALT/SGPT) 18 U/L Total Bilirubin 0.2 MG/DL Sodium Level 140 MEQ/L Potassium Level 3.9 MEQ/L Chloride Level 105 MEQ/L Carbon Dioxide Level 24.1 MEQ/L Anion Gap 11 MEQ/L Estimat Glomerular Filtration Rate 68 ML/MIN Phenytoin (Dilantin) Level 7.9 MCG/ML [facility] Medical Decision Making Medical Screen Exam Complete: Yes Emergency Medical Condition: Yes Medical Record Reviewed: Yes Differential Diagnosis Breakthrough seizure versus noncompliance seizure versus seizure disorder versus anemia versus intracranial hemorrhage versus electrolyte abnormalities Narrative Course dilantin level is subtherapeutic, so patient was given ativan im and dilantin 500mg iv partial load. patient advised to take medications as prescribed Diagnosis Primary Impression: seizure due to subtherapeutic dilantin Patient Instructions: General Instructions, Generalized Tonic Clonic Seizures ( ED) Disposition: 01 DISCHARGE HOME Condition: Stable Lee Cano MD Nov 28, 2017 10:37
[2017-11-28 11:03] LABS: AUTOMATED NEUTROPHIL # 6.3 TH/MM3 (1.8-7.7); BASOPHIL % 0.4 % (0.0-2.0); EOSINOPHIL % 0.4 % (0.0-4.0); HEMATOCRIT 41.5 % (39.0-51.0); HEMOGLOBIN 14.5 GM/DL (13.0-17.0); LYMPH % 13.2 % (9.0-44.0); MEAN CELL VOLUME 97.3 FL (80.0-100.0); MEAN CORPUSCULAR HGB CONC 34.9 % (32.0-36.0); MEAN PLATELET VOLUME 7.9 FL (7.0-11.0); MONO % 6.2 % (0.0-8.0); MONOCYTE # 0.5 TH/MM3 (0-0.9); NEUT % 79.8 % (16.0-70.0); PLATELET COUNT 265 TH/MM3 (150-450); RED BLOOD COUNT 4.26 MIL/MM3 (4.50-5.90); RED CELL DISTRIBUTION WIDTH 12.7 % (11.6-17.2); WHITE BLOOD COUNT 7.9 TH/MM3 (4.0-11.0)
--- NOTE | 2017-11-28 11:11 | RADRPT ---
EXAM DATE/TIME: 11/28/2017 10:59 [facility] COMPARISON: CT BRAIN W/O CONTRAST, June 12, 2017, 13:55. INDICATIONS : Seizure RADIATION DOSE: 56.35 CTDIvol (mGy) MEDICAL HISTORY : Seizures. Cardiovascular disease Deep venous thrombosis. SURGICAL HISTORY : None. ENCOUNTER: Initial ACUITY: 1 day PAIN SCALE: 2/10 LOCATION: Bilateral cranial TECHNIQUE: Multiple contiguous axial images were obtained of the head. Using automated exposure control and adj ustment of the mA and/or kV according to patient size, radiation dose was kept as low as reasonably a chievable to obtain optimal diagnostic quality images. DICOM format image data is available electro nically for review and comparison. FINDINGS: CEREBRUM: The ventricles are normal for age. No evidence of midline shift, mass lesion, hemorrhage or acute in farction. No extra-axial fluid collections are seen. POSTERIOR FOSSA: The cerebellum and brainstem are intact. The 4th ventricle is midline. The cerebellopontine angle i s unremarkable. EXTRACRANIAL: The visualized portion of the orbits is intact. SKULL: The calvaria is intact. No evidence of skull fracture. CONCLUSION: Stable negative noncontrast head CT. Clarecne Blandon MD on November 28, 2017 at 11:07 Board Certified Radiologist. This report was verified electronically.
[2017-11-28 11:18] LABS: ALBUMIN 3.6 GM/DL (3.4-5.0); AST (GOT) 20 U/L (15-37); BICARBONATE 24.1 MEQ/L (21.0-32.0); BLOOD UREA NITROGEN 11 MG/DL (7-18); CALCIUM 9.2 MG/DL (8.5-10.1); CHLORIDE 105 MEQ/L (98-107); GLOMERULAR FILTRATION RATE 68 ML/MIN (>89); GLUCOSE,RANDOM 173 MG/DL (74-106); SODIUM (NA) 140 MEQ/L (136-145)
[2017-11-28 11:23] LABS: ALKALINE PHOSPHATASE 145 U/L (45-117); ALT (GPT) 18 U/L (12-78); PHENYTOIN (DILANTIN) 7.9 MCG/ML (10.0-20.0); TOTAL BILIRUBIN ADULT 0.2 MG/DL (0.2-1.0); TOTAL PROTEIN 7.3 GM/DL (6.4-8.2)
[2017-11-28] MEDS: LORazepam 2 MG/ML VIAL IVS ONE (11:25)
[2017-11-28 11:50] VITALS: BP 136/75; PULSE 103; RESP 17; TEMP 98.7; O2SAT 95
[2017-11-28] MEDS ORDERED: PHENYTOIN INJ 250 MG/5 ML VIAL IV ONE (12:15)
[2017-11-28] MEDS ORDERED: LORazepam 2 MG/ML VIAL IV PUSH ONE (14:45)
== END 2017-11-28 15:51 | disposition home or self-care (01) ==
LOC: NEPC 10:12
DX: G40.909 Epilepsy, unspecified, not intractable, without status epilepticus (principal); M47.9 Spondylosis, unspecified; J44.9 Chronic obstructive pulmonary disease, unspecified; Z86.718 Personal history of other venous thrombosis and embolism; Z79.01 Long term (current) use of anticoagulants
CPT/HCPCS: 70450; 80053; 80185; 85025; 96374; 96375; 96376; 99284; J1165; J2060

== ENCOUNTER 2018-02-01 08:12 | Emergency (ER) | payer OTHER ==
[~2018-02-01] VITALS: Ht 188 cm; Wt 111.0 kg
[~2018-02-01 08:12] MED LIST changes: +ROSU5 PO
[2018-02-01 08:16] VITALS: BP 127/73; PULSE 96; RESP 17; TEMP 98.3; O2SAT 92
[2018-02-01] MEDS ORDERED: SODIUM CHLOR 0.9% 1000 ML INJ 1,000 ML IV ONE (08:24)
[2018-02-01] MEDS ORDERED: SODIUM CHLORIDE 0.9% FLUSH 10 ML FLUSH IVF PRN (08:30)
[2018-02-01] MEDS ORDERED: LORazepam 2 MG/ML VIAL IVS ONE (08:30)
[2018-02-01] MEDS ORDERED: DIVA500T3 PO (08:38)
[2018-02-01] MEDS ORDERED: LEVE500T8 PO (08:38)
[2018-02-01 08:58] LABS: AUTOMATED NEUTROPHIL # 5.6 TH/MM3 (1.8-7.7); BASOPHIL % 0.3 % (0.0-2.0); HEMATOCRIT 46.1 % (39.0-51.0); LYMPHOCYTE # 0.6 TH/MM3 (1.0-4.8); MEAN CELL VOLUME 95.6 FL (80.0-100.0); MEAN CORPUSCULAR HEMOGLOBIN 33.3 PG (27.0-34.0); MEAN CORPUSCULAR HGB CONC 34.8 % (32.0-36.0); MEAN PLATELET VOLUME 7.5 FL (7.0-11.0); MONO % 3.6 % (0.0-8.0); MONOCYTE # 0.2 TH/MM3 (0-0.9); NEUT % 87.1 % (16.0-70.0); PLATELET COUNT 226 TH/MM3 (150-450); RED BLOOD COUNT 4.82 MIL/MM3 (4.50-5.90); WHITE BLOOD COUNT 6.4 TH/MM3 (4.0-11.0)
[2018-02-01 09:13] LABS: ALBUMIN 4.3 GM/DL (3.4-5.0); AST (GOT) 21 U/L (15-37); BICARBONATE 26.6 MEQ/L (21.0-32.0); BLOOD UREA NITROGEN 11 MG/DL (7-18); CALCIUM 9.7 MG/DL (8.5-10.1); CHLORIDE 106 MEQ/L (98-107); CREATININE 1.26 MG/DL (0.60-1.30); GLOMERULAR FILTRATION RATE 58 ML/MIN (>89); GLUCOSE,RANDOM 120 MG/DL (74-106); SODIUM (NA) 139 MEQ/L (136-145)
[2018-02-01 09:16] LABS: ALKALINE PHOSPHATASE 120 U/L (45-117); ALT (GPT) 26 U/L (12-78); PHENYTOIN (DILANTIN) 2.5 MCG/ML (10.0-20.0); TOTAL BILIRUBIN ADULT 0.3 MG/DL (0.2-1.0); TOTAL PROTEIN 8.3 GM/DL (6.4-8.2)
--- NOTE | 2018-02-01 09:44 | PD ---
HPI Chief Complaint: Seizure Time Seen by Provider: 08:24 Travel History International Travel<30 days: No Contact w/Intl Traveler<30days: No Traveled to known affect area: No History of Present Illness HPI Is a 62-year-old man who presents to the emergency department complaining of seizure. He has a history of seizures ongoing for some time. He states he has some had a head injury when he was young but then developed seizures so much later in life. He had been controlled on Dilantin but states that he was having uncontrolled seizures and had difficulty managing the level so they just switched him to Keppra and Depakote. called email except he had one small seizure in the middle night, then a second larger seizure this morning. EMS describes patient was postictal on their arrival, initially a bit confused and combative, but still some confusion now. He is on Xarelto, and has a history of DVT. He is followed by Dr. Mariah badillo. Denies any other recent illness or injury. No other complaints. History Past Medical History Narrative Medical Seizure disorder DVT, on Xarelto History of colon CA status post resection in 2017, no radiation or chemotherapy PNEUMOCCOCAL Vaccine (Year): 2 Social History Alcohol Use: No Tobacco Use: No (quit 4 years ago) Allergies-Medications (Allergen,Severity, Reaction): Coded Allergies: morphine (Unverified Adverse Reaction, Mild, foot burning sensation, ) 05/20/16 DENIES ALLERGY Reported Meds & Prescriptions Reported Meds & Active Scripts Active [ACETAMIN-HYDROcod 325-5 MG] 1 TAB Tab 2 Tab PO Q6H PRN Reported Divalproex ER (Divalproex Sodium) 500 Mg Tab 500 Mg PO BID Levetiracetam 500 Mg Tab 500 Mg PO BID Crestor (Rosuvastatin Calcium) 5 Mg Tab 5 Mg PO DAILY Xarelto (Rivaroxaban) 20 Mg Tab 20 Mg PO DAILY Review of Systems Except as stated in HPI: all other systems reviewed are Neg Physical Exam Narrative GENERAL: 62-year-old man, somewhat sedate, appears generally well. SKIN: Focused skin assessment warm/dry. HEAD: Atraumatic. Normocephalic. EYES: Pupils equal and round. No scleral icterus. No injection or drainage. ENT: No nasal bleeding or discharge. Mucous membranes pink and moist. NECK: Trachea midline. No JVD. CARDIOVASCULAR: Regular rate and rhythm. No murmur appreciated. RESPIRATORY: No accessory muscle use. Clear to auscultation. Breath sounds equal bilaterally. GASTROINTESTINAL: Abdomen soft, non-tender, nondistended. Hepatic and splenic margins not palpable. MUSCULOSKELETAL: No obvious deformities. No edema. NEUROLOGICAL: A little bit sedated but arouses easily unable to answer questions appropriately. No obvious cranial nerve deficits. Motor grossly within normal limits. Normal speech. Data Data Last Documented VS Vital Signs Date Time Temp Pulse Resp B/P (MAP) Pulse Ox O2 Delivery O2 Flow Rate FiO2 02/01/18 08:16 98.3 96 17 127/73 (91) 92 Orders Orders Complete Blood Count With Diff (02/01/18 08:24) Phenytoin (Dilantin) (02/01/18 08:24) Valproic Acid (Depakene) (02/01/18 08:24) Blood Glucose (02/01/18 08:24) Ecg Monitoring (02/01/18 08:24) Iv Access Insert/Monitor (02/01/18 08:24) Oximetry (02/01/18 08:24) Comprehensive Metabolic Panel (02/01/18 08:24) Sodium Chlor 0.9% 1000 Ml Inj (Ns 1000 M (02/01/18 08:24) Sodium Chloride 0.9% Flush (Ns Flush) (02/01/18 08:30) Lorazepam Inj (Ativan Inj) (02/01/18 08:30) Labs Laboratory Tests Test 02/01/18 08:46 White Blood Count 6.4 TH/MM3 Red Blood Count 4.82 MIL/MM3 Hemoglobin 16.0 GM/DL Hematocrit 46.1 % Mean Corpuscular Volume 95.6 FL Mean Corpuscular Hemoglobin 33.3 PG Mean Corpuscular Hemoglobin Concent 34.8 % Red Cell Distribution Width 13.0 % Platelet Count 226 TH/MM3 Mean Platelet Volume 7.5 FL Neutrophils (%) (Auto) 87.1 % Lymphocytes (%) (Auto) 9.0 % Monocytes (%) (Auto) 3.6 % Eosinophils (%) (Auto) 0.0 % Basophils (%) (Auto) 0.3 % Neutrophils # (Auto) 5.6 TH/MM3 Lymphocytes # (Auto) 0.6 TH/MM3 Monocytes # (Auto) 0.2 TH/MM3 Eosinophils # (Auto) 0.0 TH/MM3 Basophils # (Auto) 0.0 TH/MM3 CBC Comment DIFF FINAL Differential Comment Blood Urea Nitrogen 11 MG/DL Creatinine 1.26 MG/DL Random Glucose 120 MG/DL Total Protein 8.3 GM/DL Albumin 4.3 GM/DL Calcium Level 9.7 MG/DL Alkaline Phosphatase 120 U/L Aspartate Amino Transf (AST/SGOT) 21 U/L Alanine Aminotransferase (ALT/SGPT) 26 U/L Total Bilirubin 0.3 MG/DL Sodium Level 139 MEQ/L Potassium Level 4.2 MEQ/L Chloride Level 106 MEQ/L Carbon Dioxide Level 26.6 MEQ/L Anion Gap 6 MEQ/L Estimat Glomerular Filtration Rate 58 ML/MIN Phenytoin (Dilantin) Level 2.5 MCG/ML Valproic Acid (Depakene) Level 44 MCG/ML MDM Medical Decision Making Medical Screen Exam Complete: Yes Emergency Medical Condition: Yes Interpretation(s) LABS: CBC is unremarkable. CMP is unremarkable Dilantin 2.5 Depakote 44 Differential Diagnosis Seizure, medication change, electrolyte abnormality, other Narrative Course Medical decision making INITIAL: 62-year-old man presents to the emergency department breakthrough seizures. The setting of adjusting his medication. He looks otherwise well. This is expected in the setting of medication adjustment. No evidence of status epilepticus. Given the small dose of benzodiazepine here. We try to call the patient's neurologist, however were unable to get a hold of anyone lobby concierge for his neurologist. He looks otherwise well. I think he safe for outpatient follow-up. Procedures Procedure Narrative Ultrasound-guided peripheral IV: Ultrasound guided peripheral IV was necessary because nursing staff unable to establish IV access. The right arm was prepped with chlorhexidine and was examined under ultrasound. Full length sterile probe cover was used. Suitable IV site was found in the right forearm. A 20- gauge catheter was introduced under direct ultrasound guidance into the vein. There was good blood return. It flushed easily. Patient tolerated well. Diagnosis Primary Impression: Breakthrough seizure Additional Instructions: Do not drive or operate heavy machinery until cleared by neurology. You should avoid being in any situation where if you had a seizure it could be dangerous such as swimming, looking on a ladder, or other such activities. Return to the emergency department for any seizures lasting more than 5 minutes , [id number] seizures, or seizures with prolonged confusion afterwards. If you have seizure aura, or if you have a seizure, take Valium as prescribed. Follow-up with your neurologist tomorrow. Med/Other Pt SpecificInfo: Prescription(s) given Scripts Diazepam (Valium) 5 Mg Tab 5 MG PO TID Y for SEIZURES, #6 TAB 0 Refills Prov: Justin Connell MD 02/01/18 Disposition: 01 DISCHARGE HOME Condition: Stable Justin Connell MD Feb 01, 2018 09:44
[2018-02-01] MEDS ORDERED: DIAZ5 PO (10:32)
== END 2018-02-01 12:06 | disposition home or self-care (01) ==
LOC: NEPE 08:12
DX: G40.909 Epilepsy, unspecified, not intractable, without status epilepticus (principal); Z79.01 Long term (current) use of anticoagulants; Z86.718 Personal history of other venous thrombosis and embolism; Z85.038 Personal history of other malignant neoplasm of large intestine; Z87.891 Personal history of nicotine dependence
CPT/HCPCS: 80053; 80164; 80185; 85025; 96374; 99284; J2060; J7030